=== PATIENT | male | born 1985 | race Caucasian/White ===

== ENCOUNTER 2023-01-12 18:10 | Emergency (ER) | payer MEDICAID ==
[~2023-01-12] VITALS: Ht 175.3 cm; Wt 70.3 kg
[~2023-01-12 18:10] MED LIST: FERR-18 PO; INSU-1343 SQ; LISI10TA30 PO
[2023-01-12 18:23] VITALS: BP 137/70; PULSE 99; RESP 17; TEMP 97.4; O2SAT 99
[2023-01-12] MEDS ORDERED: LIDOCAINE MPF 1% 10 MG/ML VIAL INJ ONE (19:00)
[2023-01-12] MEDS ORDERED: ACET-8905 PO (19:02)
[2023-01-12] MEDS ORDERED: IBUP-2213 PO (19:02)
[2023-01-12] MEDS ORDERED: CEPH-588 PO (19:02)
[2023-01-12] MEDS ORDERED: WATER STERILE 10 ML MC ONE (20:00)
[2023-01-12] MEDS: ceFAZolin 1,000 MG VIAL IM ONE (20:08)
== END 2023-01-12 20:09 | disposition home or self-care (01) ==
LOC: MED 18:10
DX: S92.421B Displaced fracture of distal phalanx of right great toe, initial encounter for open fracture (principal); E11.9 Type 2 diabetes mellitus without complications; I10 Essential (primary) hypertension; Z79.899 Other long term (current) drug therapy; Z79.4 Long term (current) use of insulin; Z79.2 Long term (current) use of antibiotics; Z79.1 Long term (current) use of non-steroidal anti-inflammatories (NSAID); W18.39XA Other fall on same level, initial encounter; Y92.096 Garden or yard of other non-institutional residence as the place of occurrence of the external cause; Y93.89 Activity, other specified; Y99.8 Other external cause status
CPT/HCPCS: 11760; 73630; 96372; 99285; J0690; J2001

== ENCOUNTER 2023-01-14 21:27 | Emergency (ER) | payer MEDICAID ==
[~2023-01-14] VITALS: Ht 167.6 cm; Wt 74.8 kg
[~2023-01-14 21:27] MED LIST changes: +ACET-8905 PO; +CEPH-588 PO; +IBUP-2213 PO
[2023-01-14 21:44] VITALS: BP 115/83; PULSE 97; RESP 17; TEMP 98.5; O2SAT 100
[2023-01-15] MEDS ORDERED: BACITRACIN OINT 500 UNITS/GM PKT TP ONE (01:00)
[2023-01-15] MEDS ORDERED: BACI-418 TP (01:09)
[2023-01-15 01:30] VITALS: BP 120/80; PULSE 89; RESP 17; TEMP 98; O2SAT 100
== END 2023-01-15 01:30 | disposition home or self-care (01) ==
LOC: MED 21:27
DX: S91.111D Laceration without foreign body of right great toe without damage to nail, subsequent encounter (principal); Z48.00 Encounter for change or removal of nonsurgical wound dressing; E11.9 Type 2 diabetes mellitus without complications; I10 Essential (primary) hypertension; Z79.899 Other long term (current) drug therapy; Z79.1 Long term (current) use of non-steroidal anti-inflammatories (NSAID); Z79.2 Long term (current) use of antibiotics; Z79.4 Long term (current) use of insulin; W20.8XXD Other cause of strike by thrown, projected or falling object, subsequent encounter
CPT/HCPCS: 99282

== ENCOUNTER 2023-01-27 19:31 | Emergency (ER) | payer MEDICAID ==
[~2023-01-27] VITALS: Ht 165.1 cm; Wt 65.3 kg
[~2023-01-27 19:31] MED LIST changes: +BACI-418 TP
[2023-01-27 19:54] VITALS: BP 123/90; PULSE 82; RESP 20; TEMP 98.7; O2SAT 100
[2023-01-27] MEDS ORDERED: SULF-59 PO (21:03)
== END 2023-01-27 21:25 | disposition home or self-care (01) ==
LOC: MED 19:31
DX: S91.111D Laceration without foreign body of right great toe without damage to nail, subsequent encounter (principal); Z48.02 Encounter for removal of sutures; E11.9 Type 2 diabetes mellitus without complications; I10 Essential (primary) hypertension; Z79.899 Other long term (current) drug therapy; Z79.1 Long term (current) use of non-steroidal anti-inflammatories (NSAID); Z79.2 Long term (current) use of antibiotics; Z79.4 Long term (current) use of insulin; X58.XXXD Exposure to other specified factors, subsequent encounter
CPT/HCPCS: 99283

== ENCOUNTER 2023-05-21 07:38 | Observation (INO) | payer MEDICAID, OTHER ==
[~2023-05-21] VITALS: Ht 167.6 cm; Wt 65.3 kg
[~2023-05-21 07:38] MED LIST changes: +SULF-59 PO
[2023-05-21 07:49] VITALS: BP 87/53; PULSE 107; RESP 18; TEMP 97.5; O2SAT 100
[2023-05-21 08:27] LABS: BASOPHILS % (AUTO) 0.3 % (0.0-2.0); HEMATOCRIT 41.2 % (36-52); HEMOGLOBIN 14.3 g/dL (12.0-18.0); LYMPHOCYTES # (AUTO) 0.8 K/uL (2.0-11.5); LYMPHOCYTES % (AUTO) 6.6 % (20.5-51.1); MEAN CORPUSCULAR HEMOGLOBIN 30 pg (27-31); MEAN CORPUSCULAR HGB CONC 35 g/dL (33-37); MEAN CORPUSCULAR VOLUME 85.1 fL (80-94); MONOCYTES # (AUTO) 0.3 K/uL (0.8-1.0); MONOCYTES % (AUTO) 2.8 % (1.7-9.3); NEUTROPHILS # (AUTO) 10.6 K/uL (1.8-7.7); NEUTROPHILS % (AUTO) 90.3 % (42.2-75.2); PLATELET COUNT (AUTO) 228 K/uL (140-450); RED BLOOD CELL COUNT(AUTO) 4.84 MIL/uL (4.20-6.10); RED CELL DISTRIBUTION WIDTH 13.1 % (11.6-13.7); WHITE BLOOD COUNT (AUTO) 11.7 K/uL (4.8-10.8)
[2023-05-21 08:40] LABS: ALBUMIN 3.9 g/dL (3.4-5.0); ANION GAP 21.8 (8-16); CALCIUM 9.3 mg/dL (8.5-10.1); CARBON DIOXIDE 19.2 mmol/L (21-32); CREATININE 1.7 mg/dL (0.6-1.3); TOTAL BILIRUBIN 1.2 mg/dL (0.0-1.0); TOTAL PROTEIN, SERUM 9.3 g/dL (6.4-8.2)
[2023-05-21] MEDS ORDERED: cefTRIAXone 1,000 MG VIAL ONE (08:41)
[2023-05-21] MEDS: NACL 0.9% 2,000 ML IV ONE (08:58)
[2023-05-21] MEDS: ONDANSETRON 4 MG/2 ML VIAL IVP ONE (09:00)
[2023-05-21 10:54] LABS: APPEARANCE,URINE CLEAR (CLEAR); BILIRUBIN,URINE 1+ (NEGATIVE); BLOOD, URINE TRACE-I (NEGATIVE); COLOR,URINE YELLOW (YELLOW); LEUKOCYTE ESTERASE ,URINE NEGATIVE (NEGATIVE); NITRITE, URINE NEGATIVE (NEGATIVE); PROTEIN,URINE 1+ (NEGATIVE); UGLUCOSE NEGATIVE (NEGATIVE); UROBILINOGEN,URINE 0.2 EU/dL (0.2 - 1)
[2023-05-21 11:30] LABS: ICTOTEST NEGATIVE (NEGATIVE)
[2023-05-21 11:32] LABS: RBC,URINE 0-5 /HPF (0-5)
[2023-05-21 11:34] LABS: BACTERIA,URINE None Seen /HPF (None Seen); HYALINE CASTS, URINE 0-10 /LPF (None Seen); MUCUS,URINE None Seen /LPF (None Seen); SQUAMOUS EPITHELIAL CELL,UR 0-3 (FEW) /LPF (0-3 (FEW)); YEAST,URINE None Seen /HPF (None Seen)
[2023-05-21] MEDS: NACL 0.9% 1,000 ML IV ONE ×2 (12:03→13:18)
[2023-05-21] MEDS ORDERED: POTASSIUM CHLORIDE 10 MEQ TABER PO PRN (13:10)
[2023-05-21] MEDS ORDERED: MAG SULF 2000 MG/WATER PREMIX 50 ML IV PRN (13:10)
[2023-05-21] MEDS ORDERED: ACETAMINOPHEN 325 MG TAB PO PRN (13:10)
[2023-05-21] MEDS ORDERED: KCL 20 MEQ IN 100 mL PREMIX 200 ML IV PRN (13:10)
[2023-05-21] MEDS ORDERED: ONDANSETRON 4 MG/2 ML VIAL IVP PRN (13:10)
[2023-05-21] MEDS ORDERED: MAGNESIUM OXIDE 400 MG TAB PO PRN (13:10)
[2023-05-21] MEDS ORDERED: HYDROcodone/APAP 5/325 MG 1 TAB TAB PO PRN (13:10)
[2023-05-21] MEDS ORDERED: INSULIN LISPRO SLIDING SCALE 100 UNITS/ML VIAL SUBQ PRN (13:15)
[2023-05-21] MEDS ORDERED: DEXTROSE 50% 50 ML SYR IVP PRN (13:15)
[2023-05-21] MEDS: NACL 0.9% 1,000 ML IV SCH (13:50)
[2023-05-21 13:52] VITALS: BP 86/47; PULSE 104; RESP 18; TEMP 97; O2SAT 96
[2023-05-21 13:58] VITALS: PULSE 104; RESP 18; O2SAT 96
[2023-05-21 14:14] VITALS: BP 105/52; PULSE 108; RESP 18; TEMP 97; O2SAT 96
[2023-05-21 16:12] VITALS: PULSE 105
[2023-05-21] MEDS: BLOOD GLUCOSE MONITORING 1 DEV DEV FS SCH (16:19)
[2023-05-21 20:00] VITALS: BP 99/66; PULSE 116; PULSE 96; RESP 20; TEMP 98.9; O2SAT 96
[2023-05-22] VITALS (11 sets, daily range): BP systolic 82–124; BP diastolic 50–88; PULSE 83–102; RESP 18; TEMP 88–99.6; O2SAT 96–100
[2023-05-22 06:36] LABS: BASOPHILS % (AUTO) 0.5 % (0.0-2.0); HEMATOCRIT 32.9 % (36-52); HEMOGLOBIN 11.5 g/dL (12.0-18.0); LYMPHOCYTES # (AUTO) 0.7 K/uL (2.0-11.5); LYMPHOCYTES % (AUTO) 16.9 % (20.5-51.1); MEAN CORPUSCULAR HEMOGLOBIN 30 pg (27-31); MEAN CORPUSCULAR HGB CONC 35 g/dL (33-37); MEAN CORPUSCULAR VOLUME 84.5 fL (80-94); MONOCYTES # (AUTO) 0.4 K/uL (0.8-1.0); MONOCYTES % (AUTO) 9.2 % (1.7-9.3); NEUTROPHILS # (AUTO) 3.1 K/uL (1.8-7.7); NEUTROPHILS % (AUTO) 73.4 % (42.2-75.2); PLATELET COUNT (AUTO) 151 K/uL (140-450); RED BLOOD CELL COUNT(AUTO) 3.89 MIL/uL (4.20-6.10); RED CELL DISTRIBUTION WIDTH 13.1 % (11.6-13.7); WHITE BLOOD COUNT (AUTO) 4.2 K/uL (4.8-10.8)
[2023-05-22 06:45] LABS: ANION GAP 12.4 (8-16); CALCIUM 8.2 mg/dL (8.5-10.1); CARBON DIOXIDE 22.1 mmol/L (21-32); CREATININE 1.1 mg/dL (0.6-1.3); POTASSIUM 3.5 mmol/L (3.5-5.1)
[2023-05-22 06:49] LABS: MAGNESIUM 1.9 mg/dL (1.8-2.4)
[2023-05-22] MEDS: NACL 0.9% 1,000 ML IV SCH (16:10)
== END 2023-05-22 17:50 | disposition home or self-care (01) ==
LOC: MED 07:38 → MTU 13:13
PROVIDERS: ADMIT Hospitalist; ATTEND Hospitalist
DX: R55 Syncope and collapse (principal); I95.9 Hypotension, unspecified; E86.0 Dehydration; E11.65 Type 2 diabetes mellitus with hyperglycemia; S09.90XA Unspecified injury of head, initial encounter; I10 Essential (primary) hypertension; R19.7 Diarrhea, unspecified; E87.1 Hypo-osmolality and hyponatremia; N28.9 Disorder of kidney and ureter, unspecified; D72.829 Elevated white blood cell count, unspecified; Z79.899 Other long term (current) drug therapy; W18.39XA Other fall on same level, initial encounter; Y93.89 Activity, other specified; Y92.89 Other specified places as the place of occurrence of the external cause; Y99.8 Other external cause status
CPT/HCPCS: 36415; 70450; 80048; 80053; 81001; 82948; 83605; 83690; 83735; 84100; 85025; 87040; 87081; 87086; 93005; 96361; 96365; 96366; 96372; 96375; 99291; C8929; G0378; J0696; J1644; J1815; J2405; J7060